=== PATIENT | female | born 1965 | race Caucasian/White ===

== ENCOUNTER → 2017-10-30 12:57 | Outpatient (CLI) | payer OTHER, SELFPAY ==
[2017-10-30 16:45] LABS: Cancer Antigen 125 < 6 U/mL (0-35)
[2017-11-03 17:48] LABS: Human HE4 Antigen 70 pmol/L
== END ==
PROVIDERS: Family Provider Family Medicine; PCP Family Medicine; Visit Provider Obstetrics & Gynecology
DX: N83.9 Noninflammatory disorder of ovary, fallopian tube and broad ligament, unspecified (principal)
CPT/HCPCS: 36415; 86304; 86305

== ENCOUNTER 2017-11-25 11:08 | Day surgery (SDC) | payer OTHER, SELFPAY ==
[2017-11-25] VITALS (7 sets, daily range): BP systolic 103–158; BP diastolic 68–92; PULSE 61–72; RESP 15–18; TEMP 36–36.8; O2SAT 91–100; BMI 28.3
--- NOTE | 2017-11-25 | PATH_ITS ---
[facility] Accession Number: [id number] . 01 Material submitted: . PART A: LEFT FALLOPIAN TUBE PART B: RIGHT FALLOPIAN TUBE . 02 Diagnosis: A. Left Fallopian Tube, Sterilization: Benign fallopian tube segment with paratubal cyst. No evidence of neoplasia. . B. Right Fallopian Tube, Sterilization: Benign fallopian tube segment with paratubal cyst. No evidence of neoplasia. I11/27/2017 . 02 Electronically signed: . Isaura Cage MD, Pathologist NPI- [id number] . 01 Gross description: . (A) Received in formalin, labeled left fallopian tube, is a fimbriated fallopian tube (length-3.6 cm, diameter-0.5 cm) with levy-tariq smooth and shiny serosa with multiple paratubal cysts (0.1 cm-3.8 cm) containing clear colorless fluid. The lumen is levy and unremarkable. Section code: (A1) real estate representative serial section; (A2) fimbria, bivalved, entirely submitted. (B) Received in formalin, labeled right fallopian tube, is a fimbriated fallopian tube (length-3.8 cm, diameter-0.5 cm) with tariq-purple smooth and shiny serosa with multiple paratubal cysts (0.1 cm-0.5 cm) containing clear colorless fluid. The lumen is levy and unremarkable. Section code: (B1) real estate representative serial section; (B2) fimbria, bivalved, entirely submitted. ([id number]) /[facility] . 02 Pathologist provided ICD-10: Z30.2 . 02 CPT . 496425, [id number] Performed at: [address] [place], [place] [id number] MD Fredi Velasquez MD Phone: [phone] Performed at: 02 [facility] [id number] [place] [id number] MD Damaso Singer MD Phone: [phone]
[2017-11-25] MEDS: LACTATED RINGERS 1,000 ML 100 ML IV (11:51)
--- NOTE | 2017-11-25 13:18 | SUR.OPER ---
Lithotomy on padded OR bed, head on pillow, arms secured on padded arm boards at <90 degrees abduction. Legs secured in padded yellow fins stirrups.
[2017-11-25] MEDS: BUPIVACAINE 0.5% W/ EPI (PF) VIAL 30 ML INJ (13:29)
[2017-11-25] MEDS: LACTATED RINGERS 1,000 ML 42 ML IV (13:55)
[2017-11-25] MEDS: OXYCODONE/ACETAMINOPHEN 5/325 TABLET 1 TAB PO (14:16)
--- NOTE | 2017-12-19 11:42 | P.OP_ITS ---
Operative Date/Time/Diagnoses Date of procedure: 11/25/17 Time of procedure: 13:30 Pre-op diagnosis: Left adnexal mass Post-op diagnosis: same Procedure: Procedures Operation Date: 11/25/17 12:15 Actual Procedures Side Surgeon p Laparoscopic BILATERAL SALPINGECTOMY Not Applicable Airam Marc MD Indications: Persistent left adnexal mass Surgeon: Airam Marc Anesthesia Type: General Operative Notes Findings: Normal ovaries bilaterally. A 6 cm x 3 cm left tubal cyst Normal right tube Normal liver and gallbladder Appendix not visualized Closure Type: primary Specimen(s): left tube and right tube Applied: catheter (In and) Estimated blood loss (mL): 10 Blood products transfused: none Procedure in detail: After informed consent was obtained, the patient was taken to the operating room where she was placed in the dorsal supine position. After adequate general endotracheal anesthesia was achieved, she was placed in the dorsal lithotomy position, and prepped and draped in the usual sterile fashion. A time-out was performed. A bivalve speculum was placed into the vagina , and the anterior lip of the cervix grasped with a single-tooth tenaculum. Cervical os was sequentially dilated until the Zumi uterine manipulator could pass easily into the endometrial cavity. The single-tooth tenaculum was removed from the anterior lip of the cervix. The bivalve speculum was removed from the vagina. Attention was then turned to the abdomen where 6 cc of 0.5% Marcaine with epinephrine were injected in the umbilical fold. A 5 mm incision was made. The Verhees needle was placed into the peritoneal cavity, and its placement confirmed by aspiration and drop test. The abdominal cavity was insufflated with 4.2 L of CO2. The Veress needle was removed, and a 5 mm trocar was placed without difficulty. A 2nd incision was made midway between the pubic symphysis and umbilicus after 6 cc of 0.5% Marcaine with epinephrine were injected. A 5 mm trocar was placed under direct visualization. The probe was used to identify the tubes and ovaries. There was no cyst on the left ovary , just a cyst on the left tube. This measured 10 cm x 3 cm. The right tube was normal. Both ovaries were normal. A 3rd incision was made midway obtain the pubic symphysis and umbilicus on the right side. A 5 mm incision was made, and a 5 mm trocar was placed under direct visualization. The left tube was grasped with an atraumatic grasper. Using the PlasmaKinetic was settings at 40 w, the mesosalpinx was cauterized and cut all the way down to the cornua of the uterus. This was repeated on the patient's right tube. A 4th incision was made after 6 cc of 0.5% Marcaine with epinephrine were injected just above the pubic symphysis. A 12 mm incision was made. A 12 mm trocar was placed under direct visualization. An endobag was placed through the suprapubic trocar and both tubes were placed into the endobag. The trocar was removed and the bag was removed through the suprapubic incision. The pelvis was inspected and there was no bleeding noted. The instruments were removed from the abdomen. The CO2 was allowed to escape. Suprapubic incision was repaired with 0 Vicryl on the fascia. All of the incisions were closed with 4 0 undyed Vicryl in a subcuticular fashion. Steri-Strips, 2 x 2, and op site were placed. The Zumi uterine manipulator was removed from the uterus. Sponge, lap, and instrument counts were correct x2. The patient tolerated the procedure well, and was taken to PACU in stable condition. Complications: none Post-operative Condition: stable Disposition: PACU Plan for aftercare: To home after recovery
--- NOTE | 2017-12-19 11:48 | PM.PREOP ---
Pre-operative Note Interval Note Pre-op Check: Yes History & Physical exam performed today by Physician Changes: No
== END 2017-11-25 14:53 | disposition home or self-care (01) ==
PROVIDERS: Family Provider Family Medicine; PCP Family Medicine; Visit Provider Obstetrics & Gynecology
PROC: (CPT 58661; principal; 2017-11-25 12:15)
DX: N83.8 Other noninflammatory disorders of ovary, fallopian tube and broad ligament (principal); F17.210 Nicotine dependence, cigarettes, uncomplicated; N83.9 Noninflammatory disorder of ovary, fallopian tube and broad ligament, unspecified
CPT/HCPCS: 58661; J1100; J2250; J2405; J2704; J3010

== ENCOUNTER → 2021-06-22 11:09 | Outpatient (CLI) | payer OTHER, SELFPAY ==
--- NOTE | 2021-06-22 11:13 | DI.MRI.S_ITS ---
PROCEDURE: MR SHOULDER RT WO CON INDICATIONS: RIGHT ROTATOR CUFF STIFFNESS TECHNIQUE: Noncontrast oblique coronal T2 fast spin echo with fat saturation, oblique sagittal T1 spin echo and T2 fast spin echo with fat saturation, axial T1 spin echo and T2 fast spin echo with fat saturation through the shoulder. COMPARISON: None. FINDINGS: Image quality: Excellent. Rotator cuff: There is full-thickness tear of the distal supraspinatus tendon measuring 9 mm AP and 7 mm transverse. There is high-grade partial-thickness tear involving the footprint of the subscapularis tendon. The infraspinatus tendon appears intact. There is moderate infraspinatus tendinitis. Sagittal images demonstrate mild supraspinatus muscle atrophy. Bones and bursae: No bone marrow contusions or fractures. There is acromioclavicular and glenohumeral joint degeneration. The acromion demonstrates conventional anatomy, without an os acromiale. Small glenohumeral joint effusion. There is small amount of subacromial-subdeltoid bursal fluid consistent with mild bursitis. Capsule and soft tissues: Degenerative fraying of the superior and posterior labrum. The long head of the biceps tendon demonstrates normal location and morphology. The rotator interval appears normal, without fibrosis. The coracohumeral ligament is normal in thickness. IMPRESSION: 1. Full-thickness tear of the supraspinatus tendon. There is mild supraspinatus muscle atrophy. 2. High-grade partial thickness tear of the subscapularis tendon involving the footprint. 3. Infraspinatus tendinitis. 4. Moderate acromioclavicular and glenohumeral joint degeneration. 5. Degenerative fraying of the superior and posterior labrum. 6. Small glenohumeral joint effusion. 7. Mild subacromial-subdeltoid bursitis. Dictated by: Shelby Anguiano M.D. on 06/22/2021 at 17:43 Approved by: Shelby Anguiano M.D. on 06/23/2021 at 9:22
== END ==
PROVIDERS: Family Provider Family Medicine; PCP Family Medicine; Referring Provider Orthopaedic Surgery; Visit Provider Orthopaedic Surgery
DX: S46.011A Strain of muscle(s) and tendon(s) of the rotator cuff of right shoulder, initial encounter (principal); M19.011 Primary osteoarthritis, right shoulder; M75.51 Bursitis of right shoulder; M25.411 Effusion, right shoulder
CPT/HCPCS: 73221